=== PATIENT | male | born 1970 | race African-American/Black ===

== ENCOUNTER → 2017-01-17 | Emergency (ER) | payer SELFPAY ==
[~2017-01-17] MED LIST: AMOXIL500 MG PO; LOMOTIL 0.025 M1 TAB PO; LORTAB 5/500 501 TAB PO; NOMEDS *; PERCOCET1 TAB PO; PREDNISONE 10MG10 MG PO; ZOFRAN4 MG PO
== END ==
LOC: UTC 14:22
DX: M25.511 Pain in right shoulder (principal)